=== PATIENT | male | born 1940 | race Caucasian/White ===

== ENCOUNTER 2021-04-02 07:41 | Emergency (ER) | payer OTHER ==
[~2021-04-02] VITALS: Ht 152.4 cm; Wt 86.2 kg
[2021-04-02] MEDS ORDERED: LASIX20 MG (07:48)
[2021-04-02] MEDS ORDERED: PROTONIX40 M1 (07:49)
[2021-04-02] MEDS ORDERED: ZYLOPRIM100 M1 (07:49)
[2021-04-02] MEDS ORDERED: LIPITOR20 MG (07:50)
[2021-04-02] MEDS ORDERED: COZAAR50 MG (07:50)
[2021-04-02] MEDS ORDERED: TOPROL XL50 M1 (07:51)
[2021-04-02] MEDS ORDERED: PAXIL20 MG (07:52)
[2021-04-02] MEDS ORDERED: LASIX40 MG PO (16:19)
[2021-04-02] MEDS ORDERED: ALDACTONE25 MG PO (16:19)
== END 2021-04-02 16:54 | disposition home or self-care (01) ==
LOC: ER 07:41 → CPU-OBS 08:02 → ER 16:54
DX: R60.1 Generalized edema (principal); R18.8 Other ascites; I11.9 Hypertensive heart disease without heart failure; Z95.0 Presence of cardiac pacemaker; Z03.818 Encounter for observation for suspected exposure to other biological agents ruled out

== ENCOUNTER 2021-05-02 08:34 | Emergency (ER) | payer OTHER ==
[~2021-05-02] VITALS: Ht 165.1 cm; Wt 84.4 kg
[~2021-05-02 08:34] MED LIST: ALDACTONE25 MG PO; COZAAR50 MG; LASIX20 MG; LASIX40 MG PO; LIPITOR20 MG; PAXIL20 MG; PROTONIX40 M1; TOPROL XL50 M1; ZYLOPRIM100 M1
[2021-05-02] MEDS ORDERED: CETAPHIL MOISTU85 GM TOP (10:49)
[2021-05-02] MEDS ORDERED: BENADRYL ITCH103 ML TOP (10:49)
== END 2021-05-02 10:54 | disposition home or self-care (01) ==
LOC: ER 08:34
DX: R21 Rash and other nonspecific skin eruption (principal)

== ENCOUNTER 2021-08-14 07:51 | Inpatient (IN) | payer OTHER ==
[~2021-08-14] VITALS: Ht 152.4 cm; Wt 77.1 kg
[~2021-08-14 07:51] MED LIST changes: +BENADRYL ITCH103 ML TOP; +CETAPHIL MOISTU85 GM TOP; -COZAAR50 MG; +COZAAR50 MG PO
--- NOTE | 2021-08-14 08:26 | NUR ---
SE RECIBE PTE EN COMPANIA DE PARAMEDICOS EL CUAL REFIERE QUE PTE TIENE UN RASH EN TODO EL CUERPO, QUE NO ESTA INGIRIEMDO ALIMENTO Y QUE TIENE DEBILIDAD. SE UBICA PTE EN EL [facility] SE LE ENTREGA PTE A RODGER ROJAS.
--- NOTE | 2021-08-14 10:28 | NUR ---
SE RECIBE PACIENTE ALERTA Y DESORIENTADO. SE CONECTA A MONITOR Y OXIMETRIA Y SE NELL LA PRESION.SE REALIZAN MUESTRAS DE LABORATORIO BAJO MEDIDAS ASEPTICAS Y SE ADMINISTRAN MEDICAMENTOS JUANPABLO ORDEN MEDICA. SE MONITOREAN LAS PRESIONES. SE LLAMA A TERAPIA RESPIRATORIA PARA REALIZAR LOS ABG Y SE COMUNICA PARA CT DE LISA SIN CONTRASTE. SE ESPERA POR PLACA DE PECHO. SE CONECTA A CANULA NASAL @2L JUANPABLO ORDEN MEDICA. SE PRESENTA A EL VALORES PANICO DE [address]. SE ESPERA POR CONSULTA CON .
--- NOTE | 2021-08-14 11:59 | NUR ---
SE LE INSERTA FERRARO #16 SE OBSERVA EGRESO DE 300ML. SE OBSERVA ORINA COLOR AMARILLA. SE COLECTA PARA CULTIVO.
--- NOTE | 2021-08-14 12:15 | NUR ---
SE NOTIFICA A FAHAD X DE PLACA DE PECHO [place].REFIEREN QUE NILO VA A PASAR A REALIZAR LA PLACA.
--- NOTE | 2021-08-14 14:30 | NUR ---
SE HABLA CON TERAPIA RESPIRATORIA QUIEN INDICA QUE BAJARAN A EMELINA TERAPIAS.
[2021-08-23] MEDS ORDERED: METOPROLOL SUCC50 MG (14:44)
[2021-08-23] MEDS ORDERED: BETAMETHASONE D30 ML (14:44)
[2021-08-23] MEDS ORDERED: SPIRONOLACTONE25 MG (14:44)
[2021-08-23] MEDS ORDERED: URSO250 MG (14:44)
[2021-08-23] MEDS ORDERED: ALLOPURINOL100 MG (14:45)
[2021-08-23] MEDS ORDERED: TRIAMCINOLONE A15 GM (14:45)
[2021-08-23] MEDS ORDERED: PANTOPRAZOLE SO40 MG (14:45)
[2021-08-23] MEDS ORDERED: MECLIZINE HCL25 MG (14:45)
[2021-08-23] MEDS ORDERED: PAROXETINE HCL20 MG (14:45)
[2021-08-27] MEDS ORDERED: CEFAZOLIN SODIUM1 GM IV (07:09)
[2021-08-27] MEDS ORDERED: XOPENEX0.63 MG/3 IH (07:09)
[2021-08-27] MEDS ORDERED: AMLODIPINE BESYL5 MG PO (07:09)
[2021-08-27] MEDS ORDERED: LASIX40 MG PO (07:10)
[2021-08-27] MEDS ORDERED: INTESTINEX680 M1 PO (07:11)
== END 2021-08-27 20:10 | disposition home or self-care (01) | DRG 871 ==
LOC: ER 07:51 → ICU 13:40 → MEDI 08-18 09:14
PROVIDERS: ADMIT Internal Medicine; ATTEND Internal Medicine
PROC: 4A033R1 Measurement of Arterial Saturation, Peripheral, Percutaneous Approach (ICD-10-PCS; principal; 2021-08-14)
PROC: 3E0F7SF Introduction of Other Gas into Respiratory Tract, Via Natural or Artificial Opening (ICD-10-PCS; 2021-08-14)
PROC: BW28ZZZ Computerized Tomography (CT Scan) of Head (ICD-10-PCS; 2021-08-14)
PROC: 05HY33Z Insertion of Infusion Device into Upper Vein, Percutaneous Approach (ICD-10-PCS; 2021-08-14)
PROC: B24BZZZ Ultrasonography of Heart with Aorta (ICD-10-PCS; 2021-08-14)
PROC: 8E0ZXY6 Isolation (ICD-10-PCS; 2021-08-15)
PROC: BW25ZZZ Computerized Tomography (CT Scan) of Chest, Abdomen and Pelvis (ICD-10-PCS; 2021-08-15)
PROC: 4A12X4Z Monitoring of Cardiac Electrical Activity, External Approach (ICD-10-PCS; 2021-08-18)
PROC: BW28ZZZ Computerized Tomography (CT Scan) of Head (ICD-10-PCS; 2021-08-20)
PROC: 05HY33Z Insertion of Infusion Device into Upper Vein, Percutaneous Approach (ICD-10-PCS; 2021-08-24)
DX: A41.9 Sepsis, unspecified organism (principal); R65.21 Severe sepsis with septic shock; J69.0 Pneumonitis due to inhalation of food and vomit; N17.8 Other acute kidney failure; J90 Pleural effusion, not elsewhere classified; E87.0 Hyperosmolality and hypernatremia; I11.0 Hypertensive heart disease with heart failure; I50.9 Heart failure, unspecified; D72.828 Other elevated white blood cell count; I27.20 Pulmonary hypertension, unspecified; R41.82 Altered mental status, unspecified; Z20.822 Contact with and (suspected) exposure to COVID-19; E87.5 Hyperkalemia; E86.0 Dehydration; Z95.0 Presence of cardiac pacemaker

== ENCOUNTER → 2021-08-29 | Emergency (ER) | payer OTHER ==
[~2021-08-29] VITALS: Ht 167.6 cm; Wt 113.4 kg
[~2021-08-29] MED LIST changes: +ALLOPURINOL100 MG; +AMLODIPINE BESYL5 MG PO; +BETAMETHASONE D30 ML; +CEFAZOLIN SODIUM1 GM IV; +INTESTINEX680 M1 PO; +MECLIZINE HCL25 MG; +METOPROLOL SUCC50 MG; +PANTOPRAZOLE SO40 MG; +PAROXETINE HCL20 MG; +SPIRONOLACTONE25 MG; +TRIAMCINOLONE A15 GM; +URSO250 MG; +XOPENEX0.63 MG/3 IH
== END | disposition expired ==
LOC: ER 11:47
DX: R60.1 Generalized edema (principal); A41.89 Other specified sepsis; Z66 Do not resuscitate; Z20.822 Contact with and (suspected) exposure to COVID-19; R21 Rash and other nonspecific skin eruption; R51.9 Headache, unspecified; R42 Dizziness and giddiness; R41.82 Altered mental status, unspecified; I50.22 Chronic systolic (congestive) heart failure; I11.0 Hypertensive heart disease with heart failure; Z95.0 Presence of cardiac pacemaker; J69.0 Pneumonitis due to inhalation of food and vomit; B37.49 Other urogenital candidiasis; R65.21 Severe sepsis with septic shock; J16.8 Pneumonia due to other specified infectious organisms; B96.89 Other specified bacterial agents as the cause of diseases classified elsewhere; I46.9 Cardiac arrest, cause unspecified; J91.8 Pleural effusion in other conditions classified elsewhere; I95.89 Other hypotension